=== PATIENT | male | born 1990 | race Caucasian/White ===

== ENCOUNTER 2020-05-06 19:35 | Emergency (ER) | payer SELFPAY ==
[~2020-05-06] VITALS: Ht 177.8 cm; Wt 54.0 kg
[2020-05-06 20:08] VITALS: BP 114/77
--- NOTE | 2020-05-06 20:28 | NUR ---
PT TO ED WITH LEFT KNEE PAIN. STATES "IT POPPED EARLIER AND I CAN'T WALK ON IT" PT DENIES CURRENT PAIN, REPORTS HX OF LEFT KNEE SURGERY. DENIES ANY OTHER MEDICAL C/O AT THIS TIME. PT PLACED ON MONITORING, PROVIDED WARM BLANKET, CALL LIGHT WITHIN REACH, ALL SAFETY MEASURES IN PLACE, FAMILY AT BS FOR SUPPORT.
--- NOTE | 2020-05-06 20:51 | NUR ---
PT TO IMAGING AT THIS TIME.
== END 2020-05-06 21:57 ==
LOC: ED 21:21
DX: S83.92XA Sprain of unspecified site of left knee, initial encounter (principal); X50.0XXA Overexertion from strenuous movement or load, initial encounter; Y93.89 Activity, other specified; Y92.69 Other specified industrial and construction area as the place of occurrence of the external cause; Y99.0 Civilian activity done for income or pay
CPT/HCPCS: 29505; 99283